=== PATIENT | female | born 1975 ===

== ENCOUNTER 2017-03-03 14:54 | Emergency (ER) | payer MEDICAID, MEDICARE ==
[2017-03-03 15:28] VITALS: BP 126/80
--- NOTE | 2017-03-03 17:05 | UC ---
UC General HPI - HPI Summary HPI Summary: Pt presents for refill on ADHD medication. Pt ran out of medication 3 days ago. Has regular pyschiatric provider and is scheduled to see provider on Mar 08. - History of Current Complaint Chief Complaint: UCMedRefill Stated Complaint: MED REFILL Time Seen by Provider: 03/03/17 16:03 Hx Obtained From: Patient Onset/Duration: Still Present Pain Intensity: 0 Similar Episode/Dx as: ADHD - Allergy/Home Medications Allergies/Adverse Reactions: Allergies Allergy/AdvReac Type Severity Reaction Status Date / Time No Known Allergies Allergy Verified 03/03/17 15:28 Home Medications: Home Medications QUEtiapine TAB* [Seroquel TAB*] 200 mg PO BEDTIME 03/03/17 [History Confirmed ] Venlafaxine EXT RELEASE CAP* [Effexor Xr CAP*] 150 mg PO DAILY 03/03/17 [ History Confirmed 03/03/17] PMH/Surg Hx/FS Hx/Imm Hx Previously Healthy: Yes - ADHD - Surgical History Surgical History: Yes Surgery Procedure, Year, and Place: right ankle. pevic surgeries. elbow surgery - Family History Known Family History: Positive: Cardiac Disease - Social History Lives: With Family Alcohol Use: None Substance Use Type: Prescribed Smoking Status (MU): Light Every Day Tobacco Smoker Amount Used/How Often: 1 per day Review of Systems Constitutional: Negative Skin: Negative Eyes: Negative ENT: Negative Respiratory: Negative Cardiovascular: Negative Gastrointestinal: Negative Genitourinary: Negative Motor: Negative Neurovascular: Negative Musculoskeletal: Negative Neurological: Other - ADHD Psychological: Other - ADHD All Other Systems Reviewed And Are Negative: Yes Physical Exam Triage Information Reviewed: Yes Appearance: Well-Appearing Vital Signs: Initial Vital Signs Temp 97.4 F 03/03/17 15:23 Pulse 88 03/03/17 15:23 Resp 16 03/03/17 15:23 BP 126/80 03/03/17 15:23 Pulse Ox 100 03/03/17 15:23 Eye Exam: Normal Neck exam: Normal Respiratory Exam: Normal Musculoskeletal Exam: Normal Neurological Exam: Normal Psychological Exam: Normal Skin Exam: Normal Course/Dx - Course Course Of Treatment: I spoke with the pt about the importance of maintaining continuity of care and to keep regular appointments and to manage medication refills with regular provider. - Differential Dx - Multi-Symptom Differential Diagnoses: Other - Medication refill Provider Diagnoses: Medication refill Discharge - Discharge Plan Condition: Stable Disposition: HOME Prescriptions: Amphetamine MIXED SALT TAB* [Adderall TAB*] 20 mg PO BID #28 tab MDD 4 Patient Education Materials: Medicine Refill (ED) Referrals: HARITHA Lao [Primary Care Provider] - As Soon As Possible Additional Instructions: Please follow up with your provider as soon as possible. We have provided a limited refill of the requested medication and recommend for continuity of care that you maintain your continued care through your regular provider.
== END 2017-03-03 16:43 | disposition home or self-care (01) ==
LOC: UCCORT 14:54
DX: F90.9 Attention-deficit hyperactivity disorder, unspecified type (principal)
CPT/HCPCS: 99202; G0463